=== PATIENT | male | born 2000 | race African-American/Black ===

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

== ENCOUNTER 2022-06-10 14:18 | Inpatient (IN) | payer OTHER ==
[2022-06-10] MEDS ORDERED: PROPOFOL 1,000,000 MCG/100 ML VIAL ONE ×2 (14:33→17:34)
[2022-06-10] MEDS ORDERED: PROPOFOL 200 MG/20 ML VIAL IVPUSH ONE ×2 (14:57→16:33)
[2022-06-10] MEDS ORDERED: PROPOFOL 20 ML ONE (14:58)
[2022-06-10] MEDS ORDERED: PROPOFOL 1,000,000 MCG/100 ML VIAL IVPB SCH ×2 (15:00→16:34)
[2022-06-10 15:15] LABS: BASO % 0.6 % (0-2.0); EOS % 1.9 % (0-4.5); HEMATOCRIT 38.7 % (35.4-49); HEMOGLOBIN 12.7 GM/dL (11.7-16.9); LYMPH % 28.4 % (8-40); MCH 28.8 pg (25.7-33.7); MCHC 32.8 g/dl (32.0-35.9); MEAN CELL VOLUME 87.7 fl (80-96); MEAN PLT VOLUME 7.7 fl (7.5-11.1); NEUT % 61.1 % (42.8-82.8); PLATELET COUNT 407 10^3/uL (134-434); RBC 4.41 M/mm3 (4.00-5.60); RDW 13.5 % (11.9-15.9); WHITE BLOOD COUNT 11.4 K/mm3 (4.0-10.0)
[2022-06-10 15:17] LABS: VENOUS BASE EXCESS -8.9 mmol/L (-2-2); VENOUS O2 SATURATION 87.4 % (70-80); VENOUS PCO2 65.8 mmHg (38-52)
[2022-06-10 15:24] LABS: VENOUS PH 7.129 (7.310-7.410)
[2022-06-10] MEDS ORDERED: SODIUM CHLORIDE 0.9% 500 ML INFUS.BAG IV ONE ×2 (15:25→16:04)
[2022-06-10 15:28] LABS: INR 1.32 (0.83-1.09); PROTHROMBIN TIME (PATIENT) 15.2 SEC (9.7-13.0)
[2022-06-10 15:30] LABS: ACTIVATED PTT 30.7 SECONDS (25.2-36.5)
[2022-06-10 15:31] LABS: EPI CELLS >36 /uL (0-25.1); HYALINE CASTS 6 /uL (0-3.1); PH,URINE 5.5 (5.0-8.0); URINE APPEARANCE CLEAR; URINE BACTERIA 14 /uL (0-1359); URINE BILIRUBIN NEGATIVE (NEGATIVE); URINE COLOR YELLOW; URINE GLUCOSE (UA) NEGATIVE (NEGATIVE); URINE KETONE NEGATIVE (NEGATIVE); URINE LEUK ESTERASE NEGATIVE (NEGATIVE); URINE NITRITE NEGATIVE (NEGATIVE); URINE PROTEIN 2+ (NEGATIVE); URINE RBC 13 /uL (0-23.9); URINE UROBILINOGEN 0.2 mg/dL (0.2-1.0); URINE WBC 33 /uL (0-25.8)
[2022-06-10] MEDS ORDERED: levETIRAcetam 500 MG/5 ML INJECTION VIAL IVPB ONE ×2 (15:40→16:03)
[2022-06-10 15:42] LABS: BLOOD UREA NITROGEN 10.4 mg/dL (7-18); CALCIUM 9.1 mg/dL (8.5-10.1)
[2022-06-10 15:43] LABS: ALBUMIN 3.8 g/dl (3.4-5.0); MAGNESIUM 2.1 mg/dL (1.8-2.4)
[2022-06-10] MEDS ORDERED: MIDAZOLAM IN 0.9 % SOD.CHLORID 1 MG/1 ML PLAST..BAG ONE ×2 (15:45→17:22)
[2022-06-10 15:46] LABS: PHOSPHOROUS 5.5 mg/dL (2.5-4.9)
[2022-06-10 15:47] LABS: BILIRUBIN,TOTAL 0.4 mg/dL (0.2-1)
[2022-06-10] MEDS ORDERED: MIDAZOLAM HCL 2 MG/2 ML SINGLE DOSE VIAL ONE ×2 (15:49→16:26)
[2022-06-10] MEDS ORDERED: MIDAZOLAM HCL 2 MG/2 ML SINGLE DOSE VIAL IVPUSH ONE (16:03)
[2022-06-10] MEDS ORDERED: LORazepam 2 MG/ML SDV VIAL IVPB ONE (16:04)
[2022-06-10] MEDS ORDERED: MIDAZOLAM IN 0.9 % SOD.CHLORID 100 MG/100 ML PLAST..BAG IVPB SCH ×3 (16:15→17:15)
[2022-06-10 16:21] LABS: ALLENS TEST POSITIVE; ARTERIAL BLD GAS O2 SATURATION 83.8 % (95-98); ARTERIAL BLOOD GAS BASE EXCESS -6.8 mmol/L (-2-2); ARTERIAL BLOOD GAS pH 7.242 (7.350-7.450)
[2022-06-10 16:22] LABS: VENT MODE A/C; VENT RATE 16
[2022-06-10 17:15] LABS: ARTERIAL BLD GAS O2 SATURATION 99.1 % (95-98); ARTERIAL BLOOD GAS BASE EXCESS -1.6 mmol/L (-2-2); ARTERIAL BLOOD GAS PO2 181.5 mmHg (80-100); ARTERIAL BLOOD GAS pH 7.319 (7.350-7.450)
[2022-06-10] MEDS ORDERED: FENTANYL NS IVPB 500 MCG/100 ML BAG IVPB ONE (17:28)
[2022-06-10] MEDS: FENTANYL NS IVPB 500 MCG/100 ML BAG IVPB SCH (18:53)
[2022-06-10] MEDS: SODIUM CHLORIDE 1,000 ML IV SCH (18:55)
[2022-06-10] MEDS ORDERED: ACETAMINOPHEN 1000 MG/100 ML BAG IVPB ONE (19:04)
[2022-06-10] MEDS: PROPOFOL 1,000,000 MCG/100 ML VIAL IVPB SCH (19:45)
[2022-06-10 21:57] VITALS: BMI 25.2
[2022-06-10] MEDS ORDERED: GLYCOPYRROLATE 1 MG TABLET PO SCH (22:00)
[2022-06-10] MEDS: MUPIROCIN 2% TOPICAL OINTMENT FOR DECOLONIZATION NS SCH (22:03)
[2022-06-10] MEDS: CHLORHEXIDINE GLUCONATE 4% CLEANSER FOR DECOLONIZATION TP SCH (22:04)
[2022-06-10 22:24] LABS: LACTIC ACID 2.1 mmol/L (0.4-2.0)
[2022-06-11] MEDS: GLYCOPYRROLATE 1 MG TABLET NGT SCH ×3 (06:54→21:33)
[2022-06-11] MEDS: PROPOFOL 1,000,000 MCG/100 ML VIAL IVPB SCH ×2 (07:03→19:35)
[2022-06-11] MEDS: FENTANYL NS IVPB 500 MCG/100 ML BAG IVPB SCH (07:04)
[2022-06-11 07:19] LABS: INR 1.45 (0.83-1.09); PROTHROMBIN TIME (PATIENT) 16.7 SEC (9.7-13.0)
[2022-06-11 07:25] LABS: CALCIUM 8.1 mg/dL (8.5-10.1)
[2022-06-11 07:26] LABS: BLOOD UREA NITROGEN 6.4 mg/dL (7-18); MAGNESIUM 1.7 mg/dL (1.8-2.4)
[2022-06-11 07:29] LABS: CREATININE 0.5 mg/dL (0.55-1.3)
[2022-06-11 07:31] LABS: BILIRUBIN,TOTAL 0.6 mg/dL (0.2-1); TOT PROT 6.2 g/dl (6.4-8.2)
[2022-06-11 07:42] LABS: ALBUMIN 2.9 g/dl (3.4-5.0)
[2022-06-11] MEDS ORDERED: MAGNESIUM SULF 50% (8.12 MEQ/2 ML-1 GM VIAL) IVPB ONE (07:45)
[2022-06-11] MEDS ORDERED: MAGNESIUM 2GM/50ML STERILE WATER IVPB IVPB ONE (09:45)
[2022-06-11] MEDS ORDERED: CHOLECALCIFEROL (VIT D3) 1,000 UNIT (25 MCG) TABLET PO SCH (10:00)
[2022-06-11] MEDS: MUPIROCIN 2% TOPICAL OINTMENT FOR DECOLONIZATION NS SCH ×2 (10:29→21:32)
[2022-06-11] MEDS: levETIRAcetam 500 MG/5 ML INJECTION VIAL IVPB SCH ×2 (10:30→21:32)
[2022-06-11] MEDS: ENOXAPARIN NA (PORCINE) 40 MG/0.4 ML DISP.SYRIN SQ SCH (10:34)
[2022-06-11] MEDS: CHOLECALCIFEROL (VIT D3) 1,000 UNIT (25 MCG) TABLET GT SCH (10:34)
[2022-06-11] MEDS: MULTIVITAMINS (DAILY MVI) TABLET (FP) PO SCH (10:34)
[2022-06-11 10:50] LABS: BASO % 0.3 % (0-2.0); EOS % 1.9 % (0-4.5); HEMATOCRIT 34.1 % (35.4-49); HEMOGLOBIN 11.3 GM/dL (11.7-16.9); LYMPH % 12.9 % (8-40); MCH 28.5 pg (25.7-33.7); MCHC 33.2 g/dl (32.0-35.9); MEAN CELL VOLUME 85.8 fl (80-96); MEAN PLT VOLUME 7.7 fl (7.5-11.1); NEUT % 77.9 % (42.8-82.8); PLATELET COUNT 304 10^3/uL (134-434); RBC 3.97 M/mm3 (4.00-5.60); RDW 13.7 % (11.9-15.9); WHITE BLOOD COUNT 8.2 K/mm3 (4.0-10.0)
[2022-06-11] MEDS: CHLORHEXIDINE GLUCONATE 4% CLEANSER FOR DECOLONIZATION TP SCH (21:32)
[2022-06-12 07:21] LABS: BASO % 0.4 % (0-2.0); EOS % 0.7 % (0-4.5); HEMATOCRIT 37.4 % (35.4-49); HEMOGLOBIN 12.4 GM/dL (11.7-16.9); LYMPH % 11.7 % (8-40); MCHC 33.3 g/dl (32.0-35.9); MEAN CELL VOLUME 87.1 fl (80-96); NEUT % 81.2 % (42.8-82.8); PLATELET COUNT 360 10^3/uL (134-434); RDW 13.5 % (11.9-15.9); WHITE BLOOD COUNT 10.6 K/mm3 (4.0-10.0)
[2022-06-12 07:45] LABS: CALCIUM 9.1 mg/dL (8.5-10.1)
[2022-06-12 07:46] LABS: ALBUMIN 3.3 g/dl (3.4-5.0); MAGNESIUM 1.8 mg/dL (1.8-2.4)
[2022-06-12 07:48] LABS: PHOSPHOROUS 3.8 mg/dL (2.5-4.9)
[2022-06-12 07:49] LABS: CREATININE 0.5 mg/dL (0.55-1.3)
[2022-06-12 07:50] LABS: BILIRUBIN,TOTAL 0.7 mg/dL (0.2-1); TOT PROT 7.1 g/dl (6.4-8.2)
[2022-06-12] MEDS: MULTIVITAMINS (DAILY MVI) TABLET (FP) PO SCH (09:06)
[2022-06-12] MEDS: CHOLECALCIFEROL (VIT D3) 1,000 UNIT (25 MCG) TABLET GT SCH (09:06)
[2022-06-12] MEDS: MUPIROCIN 2% TOPICAL OINTMENT FOR DECOLONIZATION NS SCH (09:07)
[2022-06-12] MEDS: ENOXAPARIN NA (PORCINE) 40 MG/0.4 ML DISP.SYRIN SQ SCH (09:07)
[2022-06-12] MEDS: levETIRAcetam 500 MG/5 ML INJECTION VIAL IVPB SCH ×2 (09:07→22:56)
[2022-06-12] MEDS: GLYCOPYRROLATE 1 MG TABLET NGT SCH ×3 (09:08→23:01)
[2022-06-12] MEDS: SODIUM CHLORIDE 1,000 ML IV SCH (09:08)
[2022-06-12] MEDS ORDERED: CHLORHEXIDINE GLUCONATE 4% CLEANSER FOR DECOLONIZATION TP SCH (22:00)
[2022-06-12] MEDS ORDERED: MUPIROCIN 2% TOPICAL OINTMENT FOR DECOLONIZATION NS SCH (22:00)
[2022-06-13] MEDS: SODIUM CHLORIDE 1,000 ML IV SCH ×2 (06:44→06:45)
[2022-06-13] MEDS: GLYCOPYRROLATE 1 MG TABLET NGT SCH ×3 (06:45→22:47)
[2022-06-13] MEDS: levETIRAcetam 500 MG/5 ML INJECTION VIAL IVPB SCH ×2 (11:30→22:42)
[2022-06-13] MEDS: ENOXAPARIN NA (PORCINE) 40 MG/0.4 ML DISP.SYRIN SQ SCH (11:31)
[2022-06-13] MEDS: CHOLECALCIFEROL (VIT D3) 1,000 UNIT (25 MCG) TABLET GT SCH (11:31)
[2022-06-13] MEDS: MULTIVIT-MINERALS ORAL LIQUID GT SCH (11:31)
[2022-06-14] MEDS: SODIUM CHLORIDE 1,000 ML IV SCH (06:35)
[2022-06-14] MEDS: GLYCOPYRROLATE 1 MG TABLET NGT SCH ×3 (06:36→22:11)
[2022-06-14] MEDS: MULTIVIT-MINERALS ORAL LIQUID GT SCH (10:23)
[2022-06-14] MEDS: CHOLECALCIFEROL (VIT D3) 1,000 UNIT (25 MCG) TABLET GT SCH (10:23)
[2022-06-14] MEDS: ENOXAPARIN NA (PORCINE) 40 MG/0.4 ML DISP.SYRIN SQ SCH (10:25)
[2022-06-14] MEDS: levETIRAcetam 500 MG/5 ML INJECTION VIAL IVPB SCH ×3 (12:38→22:15)
[2022-06-14] MEDS ORDERED: D5-1/2NS+20 MEQ KCL - 20 MEQ/1,000 ML INFUS.BAG IV SCH (14:30)
[2022-06-14 16:47] LABS: BASO % 0.4 % (0-2.0); EOS % 2.8 % (0-4.5); HEMATOCRIT 37.7 % (35.4-49); HEMOGLOBIN 12.5 GM/dL (11.7-16.9); LYMPH % 20.4 % (8-40); MCH 28.4 pg (25.7-33.7); MCHC 33.1 g/dl (32.0-35.9); MEAN CELL VOLUME 85.8 fl (80-96); MEAN PLT VOLUME 7.6 fl (7.5-11.1); MONO % 9.6 % (3.8-10.2); NEUT % 66.8 % (42.8-82.8); PLATELET COUNT 414 10^3/uL (134-434); RBC 4.39 M/mm3 (4.00-5.60); RDW 13.3 % (11.9-15.9); WHITE BLOOD COUNT 6.4 K/mm3 (4.0-10.0)
[2022-06-14 16:55] LABS: CALCIUM 9.1 mg/dL (8.5-10.1)
[2022-06-14 16:56] LABS: ALBUMIN 3.3 g/dl (3.4-5.0); BLOOD UREA NITROGEN 7.2 mg/dL (7-18)
[2022-06-14 16:59] LABS: CREATININE 0.5 mg/dL (0.55-1.3)
[2022-06-14 17:01] LABS: BILIRUBIN,TOTAL 0.7 mg/dL (0.2-1); TOT PROT 7.4 g/dl (6.4-8.2)
[2022-06-14] MEDS ORDERED: FAT EMULSION/OLIVE/SOY (CLINOLIPID) 250 ML EMULSION IV SCH (22:00)
[2022-06-14] MEDS: FAT EMULSION/OLIVE/SOY/PHOSPHO 250 ML IV SCH (22:11)
[2022-06-14] MEDS: AMINO ACIDS 4.25%/D5W 1,000 ML IV SCH (23:10)
[2022-06-15] MEDS: AMINO ACIDS 4.25%/D5W 1,000 ML IV SCH (05:25)
[2022-06-15] MEDS: GLYCOPYRROLATE 1 MG TABLET NGT SCH ×3 (05:27→23:16)
[2022-06-15] MEDS: MULTIVIT-MINERALS ORAL LIQUID GT SCH (09:47)
[2022-06-15] MEDS: CHOLECALCIFEROL (VIT D3) 1,000 UNIT (25 MCG) TABLET GT SCH (09:47)
[2022-06-15] MEDS: ENOXAPARIN NA (PORCINE) 40 MG/0.4 ML DISP.SYRIN SQ SCH (09:48)
[2022-06-15] MEDS: levETIRAcetam 500 MG/5 ML INJECTION VIAL IVPB SCH ×2 (09:48→23:15)
[2022-06-15] MEDS ORDERED: ACYCLOVIR 1000 MG (50MG/ML) VIAL IVPB SCH (17:15)
[2022-06-15] MEDS ORDERED: WATER IVPB SCH (18:00)
[2022-06-15] MEDS ORDERED: DEXTROSE 5% IVPB SCH (18:00)
[2022-06-15] MEDS ORDERED: ACYCLOVIR SODIUM IVPB SCH (18:00)
[2022-06-15] MEDS: NORMAL SALINE IV SCH (19:00)
[2022-06-15] MEDS: DEXTROSE 5% IV SCH (19:00)
[2022-06-15] MEDS: FAT EMULSION/OLIVE/SOY/PHOSPHO 250 ML IV SCH (23:14)
[2022-06-16] MEDS: ACYCLOVIR SODIUM IVPB SCH ×3 (02:03→19:20)
[2022-06-16] MEDS: DEXTROSE 5% IVPB SCH ×3 (02:03→19:20)
[2022-06-16] MEDS: WATER IVPB SCH ×3 (02:03→19:20)
[2022-06-16] MEDS: GLYCOPYRROLATE 1 MG TABLET NGT SCH ×3 (05:46→23:35)
[2022-06-16] MEDS: MULTIVIT-MINERALS ORAL LIQUID GT SCH ×2 (09:16→10:14)
[2022-06-16] MEDS: levETIRAcetam 500 MG/5 ML INJECTION VIAL IVPB SCH ×2 (10:12→23:34)
[2022-06-16] MEDS: ENOXAPARIN NA (PORCINE) 40 MG/0.4 ML DISP.SYRIN SQ SCH (10:13)
[2022-06-16] MEDS: CHOLECALCIFEROL (VIT D3) 1,000 UNIT (25 MCG) TABLET GT SCH ×2 (10:14→10:17)
[2022-06-16] MEDS: DEXTROSE 5% IV SCH (13:38)
[2022-06-16] MEDS: NORMAL SALINE IV SCH (13:38)
[2022-06-17] MEDS: DEXTROSE 5% IVPB SCH ×3 (02:45→18:06)
[2022-06-17] MEDS: WATER IVPB SCH ×3 (02:45→18:06)
[2022-06-17] MEDS: ACYCLOVIR SODIUM IVPB SCH ×3 (02:45→18:06)
[2022-06-17] MEDS: GLYCOPYRROLATE 1 MG TABLET NGT SCH ×4 (05:23→13:57)
[2022-06-17] MEDS: levETIRAcetam 500 MG/5 ML INJECTION VIAL IVPB SCH (09:36)
[2022-06-17] MEDS: ENOXAPARIN NA (PORCINE) 40 MG/0.4 ML DISP.SYRIN SQ SCH (09:36)
[2022-06-17] MEDS: MULTIVIT-MINERALS ORAL LIQUID GT SCH (09:37)
[2022-06-17] MEDS: CHOLECALCIFEROL (VIT D3) 1,000 UNIT (25 MCG) TABLET GT SCH (09:37)
[2022-06-17 10:27] LABS: HEMATOCRIT 39.6 % (35.4-49); HEMOGLOBIN 13.1 GM/dL (11.7-16.9); MCH 28.3 pg (25.7-33.7); MEAN CELL VOLUME 85.7 fl (80-96); MEAN PLT VOLUME 7.6 fl (7.5-11.1); PLATELET COUNT 378 10^3/uL (134-434); RBC 4.62 M/mm3 (4.00-5.60); RDW 13.2 % (11.9-15.9); WHITE BLOOD COUNT 5.6 K/mm3 (4.0-10.0)
[2022-06-17 11:09] LABS: CALCIUM 9.1 mg/dL (8.5-10.1)
[2022-06-17 11:10] LABS: BLOOD UREA NITROGEN 6.7 mg/dL (7-18)
[2022-06-17 11:13] LABS: CREATININE 0.6 mg/dL (0.55-1.3)
[2022-06-17 12:02] LABS: ANISOCYTOSIS 0; MACROCYTOSIS 0
[2022-06-17] MEDS: DEXTROSE 5% IV SCH (13:57)
[2022-06-17] MEDS: NORMAL SALINE IV SCH (13:57)
[2022-06-17] MEDS ORDERED: levETIRAcetam 500 MG/5 ML ORAL SOLUTION (UNIT-DOSE CUPS) PO SCH (22:00)
[2022-06-17] MEDS: GLYCOPYRROLATE 1 MG TABLET PO SCH (22:35)
[2022-06-18] MEDS: ACYCLOVIR SODIUM IVPB SCH ×2 (03:06→11:19)
[2022-06-18] MEDS: DEXTROSE 5% IVPB SCH ×2 (03:06→11:19)
[2022-06-18] MEDS: WATER IVPB SCH ×2 (03:06→11:19)
[2022-06-18] MEDS: GLYCOPYRROLATE 1 MG TABLET PO SCH ×3 (06:58→22:22)
[2022-06-18 10:39] LABS: BASO % 0.6 % (0-2.0); EOS % 4.3 % (0-4.5); HEMATOCRIT 40.3 % (35.4-49); HEMOGLOBIN 13.6 GM/dL (11.7-16.9); LYMPH % 21.3 % (8-40); MCH 28.8 pg (25.7-33.7); MCHC 33.8 g/dl (32.0-35.9); MEAN CELL VOLUME 85.3 fl (80-96); MEAN PLT VOLUME 7.8 fl (7.5-11.1); MONO % 8.3 % (3.8-10.2); NEUT % 65.5 % (42.8-82.8); PLATELET COUNT 377 10^3/uL (134-434); RBC 4.73 M/mm3 (4.00-5.60); RDW 13.2 % (11.9-15.9); WHITE BLOOD COUNT 5.2 K/mm3 (4.0-10.0)
[2022-06-18 11:10] LABS: CALCIUM 9.5 mg/dL (8.5-10.1)
[2022-06-18 11:11] LABS: ALBUMIN 3.6 g/dl (3.4-5.0); BLOOD UREA NITROGEN 6.6 mg/dL (7-18); MAGNESIUM 1.6 mg/dL (1.8-2.4)
[2022-06-18 11:14] LABS: CREATININE 0.6 mg/dL (0.55-1.3); PHOSPHOROUS 4.3 mg/dL (2.5-4.9)
[2022-06-18 11:15] LABS: TOT PROT 7.5 g/dl (6.4-8.2)
[2022-06-18] MEDS: ENOXAPARIN NA (PORCINE) 40 MG/0.4 ML DISP.SYRIN SQ SCH (11:15)
[2022-06-18] MEDS: MULTIVIT-MINERALS ORAL LIQUID GT SCH (11:15)
[2022-06-18 11:16] LABS: BILIRUBIN,TOTAL 0.4 mg/dL (0.2-1)
[2022-06-18] MEDS: CHOLECALCIFEROL (VIT D3) 1,000 UNIT (25 MCG) TABLET PO SCH (11:18)
[2022-06-18] MEDS: levETIRAcetam 500 MG/5 ML INJECTION VIAL IVPB SCH ×2 (11:23→13:45)
[2022-06-18] MEDS: levETIRAcetam 500 MG TABLET (FP) PO SCH (22:21)
[2022-06-18] MEDS: valACYclovir HCL 500 MG TABLET (FP) PO SCH (22:22)
[2022-06-19] MEDS: GLYCOPYRROLATE 1 MG TABLET PO SCH ×3 (07:00→21:00)
[2022-06-19] MEDS: CHOLECALCIFEROL (VIT D3) 1,000 UNIT (25 MCG) TABLET PO SCH (10:48)
[2022-06-19] MEDS: valACYclovir HCL 500 MG TABLET (FP) PO SCH ×2 (10:48→21:00)
[2022-06-19] MEDS: MULTIVIT-MINERALS ORAL LIQUID GT SCH (10:48)
[2022-06-19] MEDS: levETIRAcetam 500 MG TABLET (FP) PO SCH ×2 (10:48→21:00)
[2022-06-19] MEDS: ENOXAPARIN NA (PORCINE) 40 MG/0.4 ML DISP.SYRIN SQ SCH (10:48)
[2022-06-19 16:53] LABS: BASO % 0.7 % (0-2.0); EOS % 4.5 % (0-4.5); HEMATOCRIT 39.9 % (35.4-49); HEMOGLOBIN 13.4 GM/dL (11.7-16.9); LYMPH % 24.9 % (8-40); MCH 29.1 pg (25.7-33.7); MCHC 33.7 g/dl (32.0-35.9); MEAN CELL VOLUME 86.2 fl (80-96); MEAN PLT VOLUME 7.6 fl (7.5-11.1); MONO % 11.5 % (3.8-10.2); NEUT % 58.4 % (42.8-82.8); PLATELET COUNT 402 10^3/uL (134-434); RBC 4.62 M/mm3 (4.00-5.60); RDW 13.4 % (11.9-15.9); WHITE BLOOD COUNT 6.9 K/mm3 (4.0-10.0)
[2022-06-19 17:17] LABS: BLOOD UREA NITROGEN 11.8 mg/dL (7-18)
[2022-06-19 17:18] LABS: ALBUMIN 3.8 g/dl (3.4-5.0)
[2022-06-19 17:21] LABS: CREATININE 0.9 mg/dL (0.55-1.3)
[2022-06-19 17:23] LABS: BILIRUBIN,TOTAL 0.4 mg/dL (0.2-1); TOT PROT 7.8 g/dl (6.4-8.2)
[2022-06-20] MEDS: GLYCOPYRROLATE 1 MG TABLET PO SCH ×3 (06:07→21:28)
[2022-06-20] MEDS: levETIRAcetam 500 MG TABLET (FP) PO SCH ×2 (09:07→21:28)
[2022-06-20] MEDS: ENOXAPARIN NA (PORCINE) 40 MG/0.4 ML DISP.SYRIN SQ SCH (09:07)
[2022-06-20] MEDS: CHOLECALCIFEROL (VIT D3) 1,000 UNIT (25 MCG) TABLET PO SCH (09:07)
[2022-06-20] MEDS: valACYclovir HCL 500 MG TABLET (FP) PO SCH ×2 (09:08→21:28)
[2022-06-20] MEDS: MULTIVIT-MINERALS ORAL LIQUID GT SCH (09:08)
[2022-06-21] MEDS: GLYCOPYRROLATE 1 MG TABLET PO SCH ×3 (05:21→22:18)
[2022-06-21] MEDS: ENOXAPARIN NA (PORCINE) 40 MG/0.4 ML DISP.SYRIN SQ SCH (09:49)
[2022-06-21] MEDS: levETIRAcetam 500 MG TABLET (FP) PO SCH ×2 (09:49→22:17)
[2022-06-21] MEDS: MULTIVIT-MINERALS ORAL LIQUID GT SCH (09:49)
[2022-06-21] MEDS: CHOLECALCIFEROL (VIT D3) 1,000 UNIT (25 MCG) TABLET PO SCH (09:50)
[2022-06-21] MEDS: valACYclovir HCL 500 MG TABLET (FP) PO SCH ×2 (09:50→22:17)
[2022-06-21 15:02] LABS: BASO % 0.7 % (0-2.0); EOS % 2.8 % (0-4.5); HEMATOCRIT 38.2 % (35.4-49); LYMPH % 27.7 % (8-40); MCH 29.3 pg (25.7-33.7); MEAN CELL VOLUME 86.2 fl (80-96); MEAN PLT VOLUME 7.9 fl (7.5-11.1); MONO % 9.5 % (3.8-10.2); NEUT % 59.3 % (42.8-82.8); PLATELET COUNT 370 10^3/uL (134-434); RBC 4.44 M/mm3 (4.00-5.60); RDW 13.2 % (11.9-15.9); WHITE BLOOD COUNT 6.2 K/mm3 (4.0-10.0)
[2022-06-21 15:22] LABS: CALCIUM 9.1 mg/dL (8.5-10.1)
[2022-06-21 15:23] LABS: ALBUMIN 3.6 g/dl (3.4-5.0); BLOOD UREA NITROGEN 11.2 mg/dL (7-18); MAGNESIUM 2.1 mg/dL (1.8-2.4)
[2022-06-21 15:26] LABS: CREATININE 0.7 mg/dL (0.55-1.3); PHOSPHOROUS 3.9 mg/dL (2.5-4.9)
[2022-06-21 15:27] LABS: BILIRUBIN,TOTAL 0.4 mg/dL (0.2-1)
[2022-06-21 15:28] LABS: TOT PROT 7.3 g/dl (6.4-8.2)
[2022-06-22] MEDS: GLYCOPYRROLATE 1 MG TABLET PO SCH ×3 (05:13→21:42)
[2022-06-22] MEDS: levETIRAcetam 500 MG TABLET (FP) PO SCH ×2 (10:55→21:41)
[2022-06-22] MEDS: ENOXAPARIN NA (PORCINE) 40 MG/0.4 ML DISP.SYRIN SQ SCH (10:56)
[2022-06-22] MEDS: valACYclovir HCL 500 MG TABLET (FP) PO SCH ×2 (10:56→21:41)
[2022-06-22] MEDS: MULTIVIT-MINERALS ORAL LIQUID GT SCH (10:56)
[2022-06-22] MEDS: CHOLECALCIFEROL (VIT D3) 1,000 UNIT (25 MCG) TABLET PO SCH (10:56)
[2022-06-23] MEDS: GLYCOPYRROLATE 1 MG TABLET PO SCH ×3 (06:00→21:21)
[2022-06-23] MEDS: ENOXAPARIN NA (PORCINE) 40 MG/0.4 ML DISP.SYRIN SQ SCH (11:18)
[2022-06-23] MEDS: valACYclovir HCL 500 MG TABLET (FP) PO SCH ×2 (11:18→21:21)
[2022-06-23] MEDS: levETIRAcetam 500 MG TABLET (FP) PO SCH ×2 (11:18→21:20)
[2022-06-23] MEDS: CHOLECALCIFEROL (VIT D3) 1,000 UNIT (25 MCG) TABLET PO SCH (11:18)
[2022-06-23] MEDS: MULTIVIT-MINERALS ORAL LIQUID GT SCH (11:31)
[2022-06-23 14:00] LABS: BASO % 0.8 % (0-2.0); HEMOGLOBIN 14.6 GM/dL (11.7-16.9); LYMPH % 27.5 % (8-40); MCH 28.2 pg (25.7-33.7); MCHC 32.5 g/dl (32.0-35.9); MEAN CELL VOLUME 86.8 fl (80-96); NEUT % 59.7 % (42.8-82.8); PLATELET COUNT 410 10^3/uL (134-434); RBC 5.19 M/mm3 (4.00-5.60); RDW 13.8 % (11.9-15.9); WHITE BLOOD COUNT 5.5 K/mm3 (4.0-10.0)
[2022-06-23 14:23] LABS: BLOOD UREA NITROGEN 7.6 mg/dL (7-18); MAGNESIUM 2.3 mg/dL (1.8-2.4)
[2022-06-23 14:26] LABS: CREATININE 0.7 mg/dL (0.55-1.3)
[2022-06-24] MEDS: GLYCOPYRROLATE 1 MG TABLET PO SCH ×3 (06:31→21:52)
[2022-06-24] MEDS: valACYclovir HCL 500 MG TABLET (FP) PO SCH ×2 (10:01→21:52)
[2022-06-24] MEDS: CHOLECALCIFEROL (VIT D3) 1,000 UNIT (25 MCG) TABLET PO SCH (10:01)
[2022-06-24] MEDS: levETIRAcetam 500 MG TABLET (FP) PO SCH ×2 (10:01→21:52)
[2022-06-24] MEDS: ENOXAPARIN NA (PORCINE) 40 MG/0.4 ML DISP.SYRIN SQ SCH (10:02)
[2022-06-24] MEDS: MULTIVIT-MINERALS ORAL LIQUID GT SCH (10:02)
[2022-06-24 15:53] LABS: BASO % 0.7 % (0-2.0); EOS % 4.5 % (0-4.5); HEMATOCRIT 41.3 % (35.4-49); HEMOGLOBIN 13.7 GM/dL (11.7-16.9); LYMPH % 29.4 % (8-40); MCH 28.8 pg (25.7-33.7); MCHC 33.2 g/dl (32.0-35.9); MEAN CELL VOLUME 86.7 fl (80-96); MEAN PLT VOLUME 8.1 fl (7.5-11.1); MONO % 10.6 % (3.8-10.2); NEUT % 54.8 % (42.8-82.8); PLATELET COUNT 359 10^3/uL (134-434); RBC 4.76 M/mm3 (4.00-5.60); RDW 13.7 % (11.9-15.9); WHITE BLOOD COUNT 5.3 K/mm3 (4.0-10.0)
[2022-06-24 16:15] LABS: BLOOD UREA NITROGEN 9.5 mg/dL (7-18); CALCIUM 9.3 mg/dL (8.5-10.1); MAGNESIUM 2.1 mg/dL (1.8-2.4)
[2022-06-24 16:18] LABS: PHOSPHOROUS 4.1 mg/dL (2.5-4.9)
[2022-06-24 16:19] LABS: CREATININE 0.9 mg/dL (0.55-1.3)
[2022-06-25] MEDS: GLYCOPYRROLATE 1 MG TABLET PO SCH ×3 (06:36→21:05)
[2022-06-25] MEDS: valACYclovir HCL 500 MG TABLET (FP) PO SCH ×2 (09:36→21:04)
[2022-06-25] MEDS: levETIRAcetam 500 MG TABLET (FP) PO SCH ×2 (09:37→21:04)
[2022-06-25] MEDS: CHOLECALCIFEROL (VIT D3) 1,000 UNIT (25 MCG) TABLET PO SCH (09:37)
[2022-06-25] MEDS: ENOXAPARIN NA (PORCINE) 40 MG/0.4 ML DISP.SYRIN SQ SCH (09:37)
[2022-06-25] MEDS: MULTIVIT-MINERALS ORAL LIQUID GT SCH (09:38)
[2022-06-25] MEDS: LORATADINE 10 MG TABLET PO SCH (09:38)
[2022-06-26] MEDS: GLYCOPYRROLATE 1 MG TABLET PO SCH ×3 (06:37→22:04)
[2022-06-26 09:36] LABS: EOS % 5.1 % (0-4.5); HEMOGLOBIN 12.9 GM/dL (11.7-16.9); LYMPH % 30.2 % (8-40); MCH 28.8 pg (25.7-33.7); MCHC 33.1 g/dl (32.0-35.9); MEAN CELL VOLUME 87.2 fl (80-96); MEAN PLT VOLUME 8.3 fl (7.5-11.1); MONO % 10.9 % (3.8-10.2); NEUT % 52.8 % (42.8-82.8); PLATELET COUNT 329 10^3/uL (134-434); RBC 4.48 M/mm3 (4.00-5.60); RDW 13.7 % (11.9-15.9); WHITE BLOOD COUNT 4.5 K/mm3 (4.0-10.0)
[2022-06-26 09:55] LABS: CALCIUM 9.3 mg/dL (8.5-10.1)
[2022-06-26 09:56] LABS: BLOOD UREA NITROGEN 9.4 mg/dL (7-18)
[2022-06-26 09:59] LABS: CREATININE 0.7 mg/dL (0.55-1.3)
[2022-06-26] MEDS: MULTIVIT-MINERALS ORAL LIQUID GT SCH (10:20)
[2022-06-26] MEDS: LORATADINE 10 MG TABLET PO SCH (10:20)
[2022-06-26] MEDS: valACYclovir HCL 500 MG TABLET (FP) PO SCH ×2 (10:20→22:04)
[2022-06-26] MEDS: levETIRAcetam 500 MG TABLET (FP) PO SCH ×2 (10:20→22:01)
[2022-06-26] MEDS: CHOLECALCIFEROL (VIT D3) 1,000 UNIT (25 MCG) TABLET PO SCH (10:20)
[2022-06-27] MEDS: GLYCOPYRROLATE 1 MG TABLET PO SCH ×3 (06:25→22:23)
[2022-06-27] MEDS: CHOLECALCIFEROL (VIT D3) 1,000 UNIT (25 MCG) TABLET PO SCH (11:05)
[2022-06-27] MEDS: MULTIVIT-MINERALS ORAL LIQUID GT SCH (11:05)
[2022-06-27] MEDS: levETIRAcetam 500 MG TABLET (FP) PO SCH ×2 (11:05→22:22)
[2022-06-27] MEDS: LORATADINE 10 MG TABLET PO SCH (11:05)
[2022-06-28] MEDS: GLYCOPYRROLATE 1 MG TABLET PO SCH ×3 (06:50→22:06)
[2022-06-28] MEDS ORDERED: levETIRAcetam 250 MG TABLET PO ONE (09:55)
[2022-06-28] MEDS: MULTIVIT-MINERALS ORAL LIQUID GT SCH (09:59)
[2022-06-28] MEDS: LORATADINE 10 MG TABLET PO SCH (10:00)
[2022-06-28] MEDS: CHOLECALCIFEROL (VIT D3) 1,000 UNIT (25 MCG) TABLET PO SCH (10:00)
[2022-06-28] MEDS: levETIRAcetam 500 MG TABLET (FP) PO SCH ×2 (10:49→22:05)
[2022-06-28 11:36] LABS: HEMATOCRIT 38.9 % (35.4-49); HEMOGLOBIN 13.2 GM/dL (11.7-16.9); MCH 29.2 pg (25.7-33.7); MCHC 33.8 g/dl (32.0-35.9); MEAN CELL VOLUME 86.5 fl (80-96); MEAN PLT VOLUME 8.1 fl (7.5-11.1); PLATELET COUNT 320 10^3/uL (134-434); RDW 14.2 % (11.9-15.9); WHITE BLOOD COUNT 3.8 K/mm3 (4.0-10.0)
[2022-06-28 11:44] LABS: CALCIUM 9.4 mg/dL (8.5-10.1)
[2022-06-28 11:45] LABS: BLOOD UREA NITROGEN 7.9 mg/dL (7-18)
[2022-06-28 11:48] LABS: CREATININE 0.7 mg/dL (0.55-1.3); PHOSPHOROUS 3.8 mg/dL (2.5-4.9)
[2022-06-29] MEDS: GLYCOPYRROLATE 1 MG TABLET PO SCH ×3 (06:28→22:16)
[2022-06-29] MEDS: LORATADINE 10 MG TABLET PO SCH (10:52)
[2022-06-29] MEDS: levETIRAcetam 500 MG TABLET (FP) PO SCH ×2 (10:52→22:15)
[2022-06-29] MEDS: CHOLECALCIFEROL (VIT D3) 1,000 UNIT (25 MCG) TABLET PO SCH (10:53)
[2022-06-29] MEDS: MULTIVIT-MINERALS ORAL LIQUID GT SCH (10:54)
[2022-06-30] MEDS: GLYCOPYRROLATE 1 MG TABLET PO SCH ×3 (06:27→21:12)
[2022-06-30] MEDS: LORATADINE 10 MG TABLET PO SCH (10:28)
[2022-06-30] MEDS: CHOLECALCIFEROL (VIT D3) 1,000 UNIT (25 MCG) TABLET PO SCH (10:28)
[2022-06-30] MEDS: levETIRAcetam 500 MG TABLET (FP) PO SCH ×2 (10:28→21:12)
[2022-06-30] MEDS: MULTIVIT-MINERALS ORAL LIQUID GT SCH (10:29)
[2022-06-30 22:49] VITALS: RESP 20
[2022-07-01] MEDS: GLYCOPYRROLATE 1 MG TABLET PO SCH ×3 (06:32→22:00)
[2022-07-01 09:59] LABS: BASO % 1.2 % (0-2.0); EOS % 5.7 % (0-4.5); HEMATOCRIT 41.9 % (35.4-49); HEMOGLOBIN 13.6 GM/dL (11.7-16.9); LYMPH % 37.5 % (8-40); MCHC 32.5 g/dl (32.0-35.9); MEAN CELL VOLUME 89.1 fl (80-96); MEAN PLT VOLUME 7.9 fl (7.5-11.1); MONO % 12.7 % (3.8-10.2); NEUT % 42.9 % (42.8-82.8); PLATELET COUNT 291 10^3/uL (134-434); RDW 14.3 % (11.9-15.9); WHITE BLOOD COUNT 4.6 K/mm3 (4.0-10.0)
[2022-07-01] MEDS: CHOLECALCIFEROL (VIT D3) 1,000 UNIT (25 MCG) TABLET PO SCH (10:37)
[2022-07-01] MEDS: LORATADINE 10 MG TABLET PO SCH (10:37)
[2022-07-01] MEDS: levETIRAcetam 500 MG TABLET (FP) PO SCH ×2 (10:37→21:59)
[2022-07-01] MEDS: MULTIVIT-MINERALS ORAL LIQUID GT SCH (10:37)
[2022-07-02] MEDS: GLYCOPYRROLATE 1 MG TABLET PO SCH ×3 (06:18→21:19)
[2022-07-02] MEDS: LORATADINE 10 MG TABLET PO SCH (10:14)
[2022-07-02] MEDS: levETIRAcetam 500 MG TABLET (FP) PO SCH ×2 (10:14→21:19)
[2022-07-02] MEDS: CHOLECALCIFEROL (VIT D3) 1,000 UNIT (25 MCG) TABLET PO SCH (10:14)
[2022-07-02] MEDS: MULTIVIT-MINERALS ORAL LIQUID GT SCH (10:15)
[2022-07-03] MEDS: GLYCOPYRROLATE 1 MG TABLET PO SCH ×3 (06:43→21:22)
[2022-07-03] MEDS: levETIRAcetam 500 MG TABLET (FP) PO SCH ×2 (09:11→21:22)
[2022-07-03] MEDS: LORATADINE 10 MG TABLET PO SCH (09:11)
[2022-07-03] MEDS: CHOLECALCIFEROL (VIT D3) 1,000 UNIT (25 MCG) TABLET PO SCH (09:11)
[2022-07-03] MEDS: MULTIVIT-MINERALS ORAL LIQUID GT SCH (09:11)
[2022-07-04] MEDS: GLYCOPYRROLATE 1 MG TABLET PO SCH ×3 (06:15→21:00)
[2022-07-04] MEDS: levETIRAcetam 500 MG TABLET (FP) PO SCH ×2 (09:24→21:00)
[2022-07-04] MEDS: CHOLECALCIFEROL (VIT D3) 1,000 UNIT (25 MCG) TABLET PO SCH (09:24)
[2022-07-04] MEDS: LORATADINE 10 MG TABLET PO SCH (09:24)
[2022-07-05] MEDS: GLYCOPYRROLATE 1 MG TABLET PO SCH (05:40)
[2022-07-05] MEDS: levETIRAcetam 500 MG TABLET (FP) PO SCH (09:45)
[2022-07-05] MEDS: CHOLECALCIFEROL (VIT D3) 1,000 UNIT (25 MCG) TABLET PO SCH (09:45)
[2022-07-05] MEDS: LORATADINE 10 MG TABLET PO SCH (09:46)
[2022-07-05 15:03] VITALS: BP 126/72; PULSE 82; TEMP 98.4
== END 2022-07-05 14:57 | disposition home or self-care (01) | DRG 133 ==
LOC: JER 14:18 → JERBED 14:45 → JICU 18:08 → J8W 06-12 15:38
PROVIDERS: ADMIT Internal Medicine Pulmonary Disease; ATTEND Internal Medicine
PROC: 4A10X4Z Monitoring of Central Nervous Electrical Activity, External Approach (ICD-10-PCS; 2022-06-11)
PROC: 5A1945Z Respiratory Ventilation, 24-96 Consecutive Hours (ICD-10-PCS; principal; 2022-06-14)
DX: J96.02 Acute respiratory failure with hypercapnia (principal); F84.0 Autistic disorder; G40.909 Epilepsy, unspecified, not intractable, without status epilepticus; G40.901 Epilepsy, unspecified, not intractable, with status epilepticus; G80.9 Cerebral palsy, unspecified; Z86.74 Personal history of sudden cardiac arrest; J96.01 Acute respiratory failure with hypoxia; B97.4 Respiratory syncytial virus as the cause of diseases classified elsewhere; J98.11 Atelectasis; E16.2 Hypoglycemia, unspecified; R13.10 Dysphagia, unspecified; B00.1 Herpesviral vesicular dermatitis
CPT/HCPCS: 0241U-QW; 36415; 36600; 70450-TC; 71045-TC-FY; 74230-TC-FY; 80048; 80053; 80177; 81003; 82550; 82553; 82803; 82962; 83036; 83605; 83735; 84100; 84443; 84484; 85025; 85027; 85610; 85730; 86850; 86900; 86901; 87086; 92611-GN; 93005; 93010; 94002; 94761; 95816; 97116-GP; 97161-GP; 99291; C9803-CS; U0003; U0005